=== PATIENT | male | born 1965 | race African-American/Black ===

== ENCOUNTER 2017-11-01 12:04 | Emergency (ER) | payer MEDICAID, OTHER ==
[~2017-11-01] VITALS: Ht 172.7 cm; Wt 86.2 kg
[~2017-11-01 12:04] MED LIST: DEXAMETHASONE4 M1 PO
[2017-11-01 12:25] VITALS: BP 161/95
--- NOTE | 2017-11-01 13:29 | Emergency Room Report ---
History of Present Illness General Chief Complaint: Dizziness Source: Patient Present Illness HPI 52-year-old male presents to the emergency department complaining of episodic dizziness times several years with more frequent episodes of his symptoms over the last 5 days. Patient states that he was diagnosed in the past with Mnire' s disease. Patient describes episodes of feeling off-balance as if he is walking on a boat he denies the room spinning about him. Patient denies visual changes nausea vomiting or headache. Patient denies recent head trauma or fall. Denies pain. Patient denies palpitations or syncopal episodes. Patient does report recent nasal congestion and that his ears or popping frequently he denies changes in hearing or tinnitus. Denies CP, Palpitations, LOC, AMS, dizziness, Changes in Vision, Sensation, paresthesias, or a sudden severe headache. He states that on last physical he was told that he is prediabetic and that was over one year ago. Allergies: Coded Allergies: No Known Allergies (Unverified , 10/31/16) Patient History Past Medical History: see triage record Past Surgical History: none Pertinent Family History: none Immunizations: UTD Reviewed Nursing Documentation: PMH: Agreed, PSxH: Agreed Nursing Documentation-PMH Past Medical History: No Stated History Review of Systems All Other Systems: negative except mentioned in HPI Physical Exam Vital Signs Date Time Temp Pulse Resp B/P (MAP) Pulse Ox O2 Delivery O2 Flow Rate FiO2 11/01/17 12:25 98.2 75 18 161/95 98 Room Air Sp02 EP Interpretation: reviewed, normal General Appearance: no apparent distress, alert, GCS 15, non-toxic Head: normocephalic, atraumatic Eyes: bilateral eye normal inspection, bilateral eye PERRL ENT: hearing grossly normal, normal voice Neck: full range of motion, supple/symm/no masses Respiratory: lungs clear, normal breath sounds, speaking full sentences Cardiovascular #1: regular rate, rhythm Gastrointestinal: non tender Rectal: deferred Genitourinary: normal inspection, no CVA tenderness Musculoskeletal: back normal, gait/station normal, normal range of motion Neurologic: alert, oriented x3, responsive, motor strength/tone normal, sensory intact, normal gait, speech normal, no pronator, other - negative arnold's. no nystagmus. Skin: normal color, no rash, warm/dry, well hydrated Medical Decision Making PA Attestation Dr. Valle is my supervising Physician whom patient management has been discussed with. Diagnostic Impression: Primary Impression: Dizziness of unknown cause ER Course 52-year-old male presents to the emergency department complaining of episodic dizziness times one year. Patient states that he was diagnosed in the past with Mnire's disease. Patient describes episodes of feeling off-balance as if he is walking on a boat he denies the room spinning about him. Patient denies visual changes nausea vomiting or headache. Patient denies recent head trauma or fall. Denies pain. Patient denies palpitations or syncopal episodes. Patient does report recent nasal congestion and that his ears or popping frequently he denies changes in hearing or tinnitus. Denies CP, Palpitations, LOC, AMS, dizziness, Changes in Vision, Sensation, paresthesias, or a sudden severe headache. He states that on last physical he was told that he is prediabetic and that was over one year ago. Ddx considered but are not limited to Mnire's, BPPV, labrinitis, cerebellar stroke, hypovolemia, cardiac cause. Vital signs: are WNL, pt. is afebrile H&PE are most consistent with :Dizzy unknown cause, no focal neurological deficits, normal neuro exam. no Vertigo. no nystagmus or weakness. ORDERS: - EKG 65 NSR- reviewed by Dr. Valle -ORTHOSTATIC VS: normal - Layin/86 HR: 61, standing 159/101 HR 71. - AccuCheck: 123 ED INTERVENTIONS: I do not suspect no identify an emergent condition at this time. With current presentation, pt. is stable for close outpatient follow up and conservative treatment. D/w pt. to return promptly to ED with worsening or new symptoms.- Pt. verbalizes' understanding and agreement with proposed treatment plan. DISCHARGE: At this time pt. is stable for d/c to home. Will provide printed patient care instructions, and any necessary prescriptions. Care plan and follow up instructions have been discussed with the patient prior to discharge. EKG Diagnostic Results EP Interpretation: Dr. Valle Rate: normal Rhythm: NSR ST Segments: no acute changes ASA given to the pt in ED: No PA Scribe Text - EK PM NSR - no acute ST changes reviewed by Dr. Valle , this interpretation was scribed by ANUPAMA Dixon Last Vital Signs Date Time Temp Pulse Resp B/P (MAP) Pulse Ox O2 Delivery O2 Flow Rate FiO2 11/01/17 12:25 98.2 75 18 161/95 98 Room Air Disposition: HOME, SELF-CARE Condition: Stable Scripts Meclizine Hcl* (MECLIZINE*) 25 Mg Tablet 25 MG ORAL THREE TIMES A DAY, #20 TAB Prov: Melissa Dixon 11/01/17 Patient Instructions: Dizziness Additional Instructions: Take medications as directed. Follow up with a Neurologist in 3-5 days, even if your symptoms have resolved. --Please review list of primary care clinics, if you do not already have a primary care provider Return sooner to ED if new symptoms occur, or current symptoms become worse. Do not drink alcohol, drive, or operate heavy machinery while taking Anti-Vert as this may cause drowsiness. - Please note that this Emergency Department Report was dictated using [employer] technology software, occasionally this can lead to erroneous entry secondary to interpretation by the dictation equipment. Melissa Dixon Nov 01, 2017 13:29
[2017-11-01] MEDS ORDERED: MECLIZINE HCL25 MG ORAL (13:30)
[2017-11-01 13:44] VITALS: BP_SYST 132; BP_SYST 159; BP_SYST 174; BP_DIAS 101; BP_DIAS 86; BP_DIAS 99
[2017-11-01 13:56] VITALS: BP 150/95
--- NOTE | 2017-11-04 00:26 | Cardiology Report ---
APPROVED REPORT EKG Measurement Heart [id number] Sinus rhythm with marked sinus arrhythmia Otherwise normal ECG
== END 2017-11-01 13:57 | disposition home or self-care (01) ==
LOC: EMR 12:58
DX: R42 Dizziness and giddiness (principal)
CPT/HCPCS: 82962; 93005; 99283

== ENCOUNTER 2017-12-14 14:14 | Emergency (ER) | payer OTHER ==
[~2017-12-14] VITALS: Ht 172.7 cm; Wt 89.4 kg
[~2017-12-14 14:14] MED LIST changes: +MECLIZINE HCL25 MG ORAL
[2017-12-14] MEDS ORDERED: Vancomycin 1 GM in NS 275 ML IV ONE (14:45)
[2017-12-14] MEDS ORDERED: Ciprofloxacin 500mg tab ORAL ONE (15:15)
[2017-12-14] MEDS ORDERED: Vancomycin 1gm inj IVPB ONE (15:15)
[2017-12-14 15:16] LABS: BASOPHILS % (AUTO) 0.9 % (0.0-2.0); HEMATOCRIT 44.3 % (42.0-52.0); HEMOGLOBIN 14.9 G/DL (14.2-18.0); LYMPHOCYTES % (AUTO) 18.6 % (20.0-45.0); MEAN CORPUSCULAR VOLUME 94 FL (80-99); MONOCYTES % (AUTO) 7.1 % (1.0-10.0); NEUTROPHILS % (AUTO) 71.5 % (45.0-75.0); PLATELET COUNT 279 K/UL (150-450); RED BLOOD COUNT 4.71 M/UL (4.70-6.10); RED CELL DISTRIBUTION WIDTH 12.4 % (11.6-14.8); WHITE BLOOD COUNT 8.5 K/UL (4.8-10.8)
[2017-12-14] MEDS ORDERED: NS 275 ML ONE (15:20)
[2017-12-14 15:27] LABS: ANION GAP 8 mmol/L (5-15); BLOOD UREA NITROGEN 12 mg/dL (7-18); CALCIUM 9.3 MG/DL (8.5-10.1); CARBON DIOXIDE 31 MMOL/L (21-32); CHLORIDE 100 MMOL/L (98-107); CREATININE 1.1 MG/DL (0.55-1.30); POTASSIUM 3.5 MMOL/L (3.5-5.1); SODIUM 139 MMOL/L (136-145)
[2017-12-14 15:31] LABS: ALANINE AMINOTRANSFERASE 19 U/L (12-78); ALBUMIN 4.3 G/DL (3.4-5.0); ALBUMIN/GLOBULIN RATIO 1.1 (1.0-2.7); ALKALINE PHOSPHATASE 60 U/L (46-116); ASPARTATE AMINO TRANSFERASE 15 U/L (15-37); BILIRUBIN,TOTAL 0.7 MG/DL (0.2-1.0)
[2017-12-14 15:49] VITALS: BP 146/91
--- NOTE | 2017-12-14 17:44 | Emergency Room Report ---
History of Present Illness General Chief Complaint: General Complaint Source: Patient Present Illness HPI This patient states that he's noticed over the past week worsening skin changes on his left foot in between his toes. He states that he is living in a different home and has been showering after his nephews have athlete's foot. He states that he noted about one and a half weeks ago that he was having some itchy skin and peeling in this area. He states that he scratched the skin off. He states that is when he noted that the symptoms progressed. He states he has been applying topical Lamisil and powder without improvement. He denies fever or chills. He denies nausea or vomiting. He has no other complaints. Allergies: Coded Allergies: No Known Allergies (Unverified , 10/31/16) Patient History Past Medical History: none Social History: Denies: smoking, alcohol use, drug use Reviewed Nursing Documentation: PMH: Agreed, PSxH: Agreed Nursing Documentation-PMH Past Medical History: No History, Except For Review of Systems All Other Systems: negative except mentioned in HPI Physical Exam Vital Signs Date Time Temp Pulse Resp B/P (MAP) Pulse Ox O2 Delivery O2 Flow Rate FiO2 12/14/17 14:26 98.2 70 16 166/109 97 Room Air Sp02 EP Interpretation: reviewed, normal General Appearance: no apparent distress, alert, GCS 15, non-toxic Head: normocephalic, atraumatic Eyes: bilateral eye normal inspection, bilateral eye PERRL ENT: hearing grossly normal, normal pharynx, no angioedema, normal voice Neck: full range of motion, supple/symm/no masses Respiratory: chest non-tender, lungs clear, normal breath sounds, speaking full sentences Cardiovascular #1: regular rate, rhythm, no edema Gastrointestinal: normal bowel sounds, non tender, soft, non-distended, no guarding, no rebound Rectal: deferred Musculoskeletal: back normal, gait/station normal, normal range of motion, other - See skin exam. Neurologic: alert, oriented x3, responsive, motor strength/tone normal, sensory intact, speech normal Psychiatric: judgement/insight normal, memory normal, mood/affect normal, no suicidal/homicidal ideation Skin: other - L. foot and toes with ulcerations, maceration, swelling, mild erythema and foul odor between toes. Medical Decision Making Diagnostic Impression: Primary Impression: Tinea pedis Additional Impression: Cellulitis ER Course This patient has severe tinea pedis. He also has a foul odor and some skin findings are concerning for bacterial superinfection. There is no evidence of abscess on physical exam. He was given IV vancomycin and oral ciprofloxacin to cover MRSA and Pseudomonas. Given the severity of the skin findings I will go ahead and start this patient on a one-week course of an oral antifungal in addition to antibiotic coverage for cellulitis. The patient was given close return precautions to include worsening skin changes and development of fever. He was also instructed on wound care/skin tear and topical antifungals to include topical fungal powders. He is instructed to followup closely with his primary care physician. Laboratory Tests Test 12/14/17 14:55 12/14/17 15:25 White Blood Count 8.5 K/UL (4.8-10.8) Red Blood Count 4.71 M/UL (4.70-6.10) Hemoglobin 14.9 G/DL (14.2-18.0) Hematocrit 44.3 % (42.0-52.0) Mean Corpuscular Volume 94 FL (80-99) Mean Corpuscular Hemoglobin 31.6 PG (27.0-31.0) H Mean Corpuscular Hemoglobin Concent 33.6 G/DL (32.0-36.0) Red Cell Distribution Width 12.4 % (11.6-14.8) Platelet Count 279 K/UL (150-450) Mean Platelet Volume 7.8 FL (6.5-10.1) Neutrophils (%) (Auto) 71.5 % (45.0-75.0) Lymphocytes (%) (Auto) 18.6 % (20.0-45.0) L Monocytes (%) (Auto) 7.1 % (1.0-10.0) Eosinophils (%) (Auto) 2.0 % (0.0-3.0) Basophils (%) (Auto) 0.9 % (0.0-2.0) Sodium Level 139 MMOL/L (136-145) Potassium Level 3.5 MMOL/L (3.5-5.1) Chloride Level 100 MMOL/L (98-107) Carbon Dioxide Level 31 MMOL/L (21-32) Anion Gap 8 mmol/L (5-15) Blood Urea Nitrogen 12 mg/dL (7-18) Creatinine 1.1 MG/DL (0.55-1.30) Estimate Glomerular Filtration Rate > 60 mL/min (>60) Glucose Level 95 MG/DL (74-106) Calcium Level 9.3 MG/DL (8.5-10.1) Total Bilirubin 0.7 MG/DL (0.2-1.0) Aspartate Amino Transferase (AST) 15 U/L (15-37) Alanine Aminotransferase (ALT) 19 U/L (12-78) Alkaline Phosphatase 60 U/L (46-116) Total Protein 8.2 G/DL (6.4-8.2) Albumin 4.3 G/DL (3.4-5.0) Globulin 3.9 g/dL Albumin/Globulin Ratio 1.1 (1.0-2.7) Lactic Acid Level 1.00 mmol/L (0.66-2.22) Last Vital Signs Date Time Temp Pulse Resp B/P (MAP) Pulse Ox O2 Delivery O2 Flow Rate FiO2 12/14/17 15:49 60 13 146/91 100 Room Air 12/14/17 14:26 98.2 Status: improved Disposition: HOME, SELF-CARE Condition: Improved Referrals: NATALIE MONTES DE [facility],REFERRI (PCP) EDISON HYDE D.O. Dec 14, 2017 17:44
[2017-12-14] MEDS ORDERED: TERBINAFINE HC250 MG PO (17:48)
[2017-12-14] MEDS ORDERED: CIPROFLOXACIN500 M2 ORAL (17:48)
[2017-12-14] MEDS ORDERED: DOXYCYCLINE MO100 MG ORAL (17:48)
[2017-12-14 19:34] VITALS: BP 138/78
[2017-12-14 19:35] VITALS: BP 138/78
== END 2017-12-14 19:38 | disposition home or self-care (01) ==
LOC: EMR 14:49
DX: B35.3 Tinea pedis (principal); L03.116 Cellulitis of left lower limb
CPT/HCPCS: 36415; 80053; 83605; 85025; 96360; 96365; 99284; J3370; J7050